=== PATIENT | female | born 1970 | race Caucasian/White ===

== ENCOUNTER 2016-05-17 11:00 | Day surgery (SDC) | payer OTHER ==
--- NOTE | 2016-04-19 06:54 | PCM.HPANE ---
Patient Data Surgeon Admitting Provider: Attending Provider:José Rendon MD Primary Care Physician:Concepción Love MD Other Provider:Bria Enriquezingham Anesthesia Reason for Visit Abnormal Uterine Bleeding, Dysmenorrhea Ht/WT & BMI Height (Feet): 5 Height (Inches): 1 Weight (Kilograms): 97.4 Body Mass Index 40.00 Allergies Coded Allergies: No Known Allergies (Unverified , 04/18/16) Past Anesthesia History Anesthesia History: Positive for:: Abnormal Airway (misalignment jaw- bad bite , surgery scheduled in future), Denies:: Anesthesia Reactions (post c section- nausea and vomiting), Difficult Intubation, Fam Anesthesia Reaction Diabetes History Hx Diabetes?: No (gestational x2) MRSA MRSA: No Medications Hypertension Medication: No Home Meds Incl Beta Ade: No No Active Prescriptions or Reported Meds History HEENT History: Positive for:: Abnormal Airway (misalignment jaw- bad bite , surgery scheduled in future) Denies:: Cataracts Difficult Intubation Dysphagia Glaucoma Hearing Problem Sinus Problem TMJ Cardiovascular History: Denies:: AICD Abdominal Aortic Aneurism Cardiac Surgery Chest Pain Congestive Heart Failure Coronary Artery Disease Edema Heart Murmur Hypertension Irregular Heartbeat Pacemaker Peripheral Vascular Hx of Respiratory Problem?: Yes Respiratory History: Positive for:: Use of C-PAP Machine Denies:: Asthma COPD Emphysema Oxygen Administration Pneumonia Pulmonary Embolism Tuberculosis Use of Inhalers / NEBS Hx Neurologic Problems?: Yes Neurological History: Positive for:: Headaches (related to jaw alignment) Denies:: Alzheimer's Disease Dementia Dizziness Multiple Sclerosis Parkinson's Disease Seizures TIA Hx of GI Problems?: No Gastrointestinal History: Denies:: Cirrhosis Gall Bladder Disease Gastroesphageal Reflux Gastrointestinal Bleeding Heartburn Hepatitis Hiatal Hernia Liver Disease Rectal Bleeding Hx of Problems?: No Genitourinary History: Denies:: Kidney Stones Urinary Tract Infection Female Hx: Denies:: Currently Problems with Breasts? Skin History: Denies:: History Skin Disorders? Pressure Ulcers Hx Musculoskeletal Problems?: Yes Musculoskeletal History: Positive for:: Back Injury (chiropractor as needed for occ ) Denies:: Fibromyalgia Joint Replacement Musculoskeletal Trauma Myasthenia Gravis Osteoarthritis Rheumatoid Arthritis Systemic Lupus Hx of Psycho/Social Problems?: No Psycho Social History: Denies:: Anxiety Hx Depression Hx Surgeries?: Yes (c sections x 2, pericaritis at child, eye surgery) Hx Any Other Health Problems?: Yes Other History: Denies:: Cancer Thyroid Disease History Blood Transfusions: Positive for:: Accept Blood Products? Denies:: Blood Transfusions Hx Diabetes: No (gestational x2) Hx Alcohol Use: YesAlcoholic Drinks Per Day: four drinks weeklyHx Substance Use: NoHave You Smoked inLast 12 mo: No Stop/Bang S-Snoring: Do You Snore Loudly: Yes T-Tired: feel tired, fatigued: Yes O-Obsered: Observed not breath: Yes P-Blood Pressure: treated: No B- Body Mass Index > 35 kg/m2: No A- Age over 50: No N- Neck Large Circumference: No G- Gender Male: No ANALIA Total Score: 3 Risk Assessment Category Category 1A: Patient has history of documented sleep apnea, and HAS NOT received any narcotic, sedative or anesthesia administration during this stay. Category 1B: Patient has history of documented sleep apnea, and HAS received any narcotic , sedative or anesthesia administration during this stay Category 2: Patient has SUSPECTED Obstructive Sleep Apnea, and HAS received any narcotic , sedative or anesthesia administration during this stay. Category 3: Patient has SUSPECTED Obstructive Sleep Apnea and HAS NOT received narcotic, sedative or anesthesia administration during this stay. Category 4: Outpatient in Procedural Areas with known sleep apnea or who screen positive for High Risk via the STOP/BANG questionnaire. Plan Impression Case cancelled for unknown reasons. Leif Mchugh MD Apr 19, 2016 06:54 Leif Mchugh MD Apr 19, 2016 06:54
[~2016-05-17] VITALS: Ht 154.9 cm; Wt 96.4 kg
[2016-05-17] VITALS (12 sets, daily range): BP systolic 111–140; BP diastolic 59–81; PULSE 71–83; RESP 14–23; O2SAT 94–98
[2016-05-17] MEDS: Lactated Ringer's 1,000 ML IV SCH ×4 (05:00→19:55)
[~2016-05-17 11:00] MED LIST: Acetaminophen IV 1,000 MG in IV Premix 1 EACH IV ONE; CeFAZolin Inj 2 GM in IV Premix 1 EACH IV ONE; LORazepam 1 mg Tablet PO PRN; Lactated Ringer's 1,000 ML IV SCH; fentaNYL-PF 50 mCg/mL 2 mL Inj IVPUSH PRN
[2016-05-17] MEDS ORDERED: Ketamine 10 mg/mL 20 mL Inj ONE (11:01)
[2016-05-17] MEDS ORDERED: Labetalol 5 mg/mL 20 mL Inj ONE (11:01)
[2016-05-17] MEDS ORDERED: fentaNYL-PF 50 mCg/mL 2 mL Inj ONE (11:01)
[2016-05-17] MEDS ORDERED: Ondansetron 2 mg/mL 2 mL Inj ONE (11:01)
[2016-05-17] MEDS ORDERED: Dexamethasone 4 mg/mL Inj ONE (11:01)
[2016-05-17] MEDS ORDERED: CeFAZolin 2 Gm/50 mL D5W Duplex Bag IV ONE (11:14)
[2016-05-17] MEDS ORDERED: [UNRECOGNIZED DRUG - REMARK] PO (11:23)
[2016-05-17] MEDS ORDERED: FLUT9.9S NS (11:23)
--- NOTE | 2016-05-17 14:53 | PCM.HPANE ---
Patient Data Surgeon Admitting Provider: Attending Provider:José Rendon MD Primary Care Physician:Herlinda Escobar ARNP Other Provider:Brea Enriquez Anesthesia Reason for Visit Abnormal Uterine Bleeding, Dysmenorrhea Ht/WT & BMI Height (Feet): 5 Height (Inches): 1.00 Weight (Kilograms): 95.8 Body Mass Index 39.00 Allergies Coded Allergies: No Known Allergies (Unverified , 04/18/16) Past Anesthesia History Anesthesia History: Positive for:: Abnormal Airway (misalignment jaw- bad bite , surgery scheduled in future), Denies:: Anesthesia Reactions (post c section- nausea and vomiting), Difficult Intubation, Fam Anesthesia Reaction Diabetes History Hx Diabetes?: No MRSA MRSA: No Medications Hypertension Medication: No Home Meds Incl Beta Ade: No Reported Medications Fluticasone Propionate (Flonase Allergy Relief)50 Mcg/Actuation [place].susp9.9 Ml NS DAILY 05/17/16 [allery rx] No Conflict Check Po Daily 05/17/16 History HEENT History: Positive for:: Abnormal Airway (misalignment jaw- bad bite , surgery scheduled in future) Denies:: Cataracts Difficult Intubation Dysphagia Glaucoma Hearing Problem Sinus Problem TMJ Cardiovascular History: Denies:: AICD Abdominal Aortic Aneurism Cardiac Surgery Chest Pain Congestive Heart Failure Coronary Artery Disease Edema Heart Murmur Hypertension Irregular Heartbeat Pacemaker Peripheral Vascular Hx of Respiratory Problem?: Yes Respiratory History: Positive for:: Use of C-PAP Machine Denies:: Asthma COPD Emphysema Oxygen Administration Pneumonia Pulmonary Embolism Tuberculosis Use of Inhalers / NEBS Hx Neurologic Problems?: Yes Neurological History: Positive for:: Headaches (related to jaw alignment) Denies:: Alzheimer's Disease Dementia Dizziness Multiple Sclerosis Parkinson's Disease Seizures TIA Hx of GI Problems?: No Gastrointestinal History: Denies:: Cirrhosis Gall Bladder Disease Gastroesphageal Reflux Gastrointestinal Bleeding Heartburn Hepatitis Hiatal Hernia Liver Disease Rectal Bleeding Hx of Problems?: No Genitourinary History: Denies:: Kidney Stones Urinary Tract Infection Female Hx: Denies:: Currently Problems with Breasts? Skin History: Denies:: History Skin Disorders? Pressure Ulcers Hx Musculoskeletal Problems?: Yes Musculoskeletal History: Positive for:: Back Injury (chiropractor as needed for occ ) Denies:: Fibromyalgia Joint Replacement Musculoskeletal Trauma Myasthenia Gravis Osteoarthritis Rheumatoid Arthritis Systemic Lupus Hx of Psycho/Social Problems?: No Psycho Social History: Denies:: Anxiety Hx Depression Hx Surgeries?: Yes (c sections x 2, pericaritis at child, eye surgery) Hx Any Other Health Problems?: Yes Other History: Denies:: Cancer Thyroid Disease History Blood Transfusions: Positive for:: Accept Blood Products? Denies:: Blood Transfusions Hx Diabetes: No Hx Alcohol Use: YesAlcoholic Drinks Per Day: four drinks weeklyHx Substance Use: No Smoking Status: Former Smoker Have You Smoked inLast 12 mo: No Stop/Bang Treated for Sleep Apnea?: No Do You Have a CPAP Machine?: No S-Snoring: Do You Snore Loudly: Yes T-Tired: feel tired, fatigued: Yes O-Obsered: Observed not breath: Yes P-Blood Pressure: treated: No B- Body Mass Index > 35 kg/m2: No A- Age over 50: No N- Neck Large Circumference: No G- Gender Male: No ANALIA Total Score: 3 ANALIA Risk Assessment: High Risk, =/>3 Yes ANALIA Category 2: Yes Risk Assessment Category Category 1A: Patient has history of documented sleep apnea, and HAS NOT received any narcotic, sedative or anesthesia administration during this stay. Category 1B: Patient has history of documented sleep apnea, and HAS received any narcotic , sedative or anesthesia administration during this stay Category 2: Patient has SUSPECTED Obstructive Sleep Apnea, and HAS received any narcotic , sedative or anesthesia administration during this stay. Category 3: Patient has SUSPECTED Obstructive Sleep Apnea and HAS NOT received narcotic, sedative or anesthesia administration during this stay. Category 4: Outpatient in Procedural Areas with known sleep apnea or who screen positive for High Risk via the STOP/BANG questionnaire. Exam Exam Vital Signs Vital Signs Date Time Temp Pulse Resp B/P Pulse Ox O2 Delivery O2 Flow Rate FiO2 05/17/16 11:44 CPAP/BIPAP 05/17/16 11:44 36.9 83 18 140/78 97 Room Air General Appearance: Alert, Oriented X3, Cooperative, No Acute Distress HEENT/AIRWAY: MP 2 Lungs: Clear to Auscultation, Normal Air Movement Heart: Exam Unremarkable, Regular Rate/Rhythm, No Murmurs/Rubs/Gallops Meds/Labs/Diagnostics Admission Meds Current Medications Lactated Ringer's (Lr) 1,000 ml @ 120 mls/hr Q8H20M IV Last administered on t 11:04; Start 05/17/16 at 05:00; Stop 05/17/16 at 13:26; Status DC Plan Impression Patient chart reviewed, patient interviewed and anesthestic plan with risks, benefits, and alternatives discussed, and informed consent obtained. ASA Physical Status: ASA3 Severe Disease (BMI 40) Anesthetic Plan: GA Bene/Risks/Altern/Consents: Yes HP Complete Prior to Induction: Yes Morris Daniel MD May 17, 2016 14:53
[2016-05-17] MEDS ORDERED: Bupivacaine-MPF 0.5% W/EPI 30 mL Inj INFILTRATE ONE (15:00)
[2016-05-17] MEDS ORDERED: Lactated Ringer's 500 ML IV PRN (15:13)
[2016-05-17] MEDS ORDERED: Lactated Ringer's 1,000 ML IV SCH (15:13)
[2016-05-17] MEDS ORDERED: Ondansetron 2 mg/mL 2 mL Inj IVPUSH PRN ×2 (15:15→19:00)
[2016-05-17] MEDS ORDERED: fentaNYL-PF 50 mCg/mL 2 mL Inj IVPUSH PRN (15:15)
[2016-05-17] MEDS ORDERED: MetoCLOpramide 5 mg/mL 2 mL Inj IVPUSH PRN ×2 (15:15→19:00)
[2016-05-17] MEDS ORDERED: EPHEDrine Sulfate 50 mg/mL Inj IVPUSH PRN (15:15)
[2016-05-17] MEDS ORDERED: Dexamethasone 4 mg/mL Inj IVPUSH PRN (15:15)
[2016-05-17] MEDS ORDERED: HYDROmorphone 1 mg/mL Inj IVPUSH PRN (15:15)
[2016-05-17] MEDS ORDERED: Phenylephrine 10,000 mCg/mL Inj IVPUSH PRN (15:15)
[2016-05-17] MEDS ORDERED: Lactated Ringer's 1,000 ML IV ONE (16:50)
[2016-05-17] MEDS ORDERED: oxyCODONE-Acetamin 5-325 mg Tablet PO PRN (19:00)
[2016-05-17] MEDS ORDERED: Senna-Docusate 8.6-50 mg Tablet PO PRN (19:00)
[2016-05-17] MEDS ORDERED: Alum-Mag Hydrox-Simeth 30 mL Suspension PO PRN (19:00)
[2016-05-17] MEDS: Senna-Docusate 8.6-50 mg Tablet PO SCH (23:44)
[2016-05-18 01:59] VITALS: BP 117/73; PULSE 109; RESP 18; O2SAT 96
--- NOTE | 2016-05-18 02:53 | NUR ---
post op pt arrived to [facility] room 1030 at 1945 via [facility] from PACU. she was drowsy but oriented. on 2L of via NC. diego patent and draining to gravity. pt complained of feeling like she needed to void and lots of pressure. she was bladder scanned and the scan was 0. diego repositioned to try and provide comfort. the sensation to need to urinate has persisted but pt has been asked to inform nursing staff if it becomes more severe or painful. she had no pain upon returning to pacu. she denied nausea and was given water. bowel tones are absent and pt is not passing gas.minimal amount of bleeding seen on alina pad. care continues.
[2016-05-18] MEDS: Lactated Ringer's 1,000 ML IV SCH ×2 (02:58→10:58)
--- NOTE | 2016-05-18 05:51 | OP ---
[address] [address] OPERATIVE REPORT PATIENT: SELENA RUSHING : 1970 MR#: [id number] ADMIT: 05/17/2016 JOB ID: [id number] DATE OF SURGERY: 05/17/2016 PROCEDURE: 1. Total laparoscopic hysterectomy. 2. Bilateral salpingectomy. 3. Cystoscopy. PREOPERATIVE DIAGNOSIS(ES): 1. Abnormal uterine bleeding. 2. Dysmenorrhea. POSTOPERATIVE DIAGNOSIS(ES): 1. Abnormal uterine bleeding. 2. Dysmenorrhea. SURGEON: José Rendon MD. DRAFTER CHIEF DESIGN: Alyce Erwin MD. ANESTHESIA: General. ANESTHESIOLOGIST: Morris Daniel MD. ESTIMATED BLOOD LOSS: 300 mL. ESTIMATED URINE OUTPUT: 800 mL. FLUIDS: 1800 mL of lactated Ringer. COMPLICATIONS: None. FINDINGS: Adhesions between the omentum and the midportion of the abdomen next to the umbilicus. Small cervix, nonstenotic. Uterus about 10 weeks in size. Transected fallopian tubes as the result of prior tubal ligation. Normal ovaries. This surgery was complicated by the patient's BMI of 40 and presence of MD assistant professor in family studies was necessary for retraction and visualization, and in assistance with manipulation of the specimen and tissue. DESCRIPTION OF PROCEDURE: The patient was brought to the operating room, where she underwent general anesthesia without difficulty. The patient was prepped and draped in usual surgical fashion. She was placed in the dorsal lithotomy position using Justin stirrups. She received preoperative antibiotics. Time-out was performed verifying correct patient, correct procedure. Pelvic exam was performed. The uterus was found to be about 10 weeks in size, mobile, mid position. The Lackey catheter was placed prior to the procedure. The cervix was identified, grasped with a tenaculum and VCare uterine manipulator was placed with a small cup. Attention was then directed to the patient's abdomen, where a Veress needle was introduced and CO2 gas was insufflated with appropriate pneumoperitoneum achieved. A 5 mm subumbilical incision was made with a scalpel and a 5 mm trocar was placed through the incision. A 30-degree scope was used for laparoscopy and cystoscopy. The patient's abdomen was reviewed with the findings mentioned above. Initially, lysis of some adhesions at the paraumbilical area was performed using Thunderbeat instrument. When the adhesions were released, omentum was dissected down and good visualization was achieved. We proceeded with total laparoscopic hysterectomy with bilateral salpingectomy. Two additional trocars were placed in the right and left lower quadrants 5 cm medially and 10 cm above the anterior superior iliac spine. The patient was placed in Trendelenburg position and the uterus was elevated up. Because bowel was obscuring the view despite Trendelenburg position and the patient was desaturating, an additional 5 mm skin incision was made on the patient's left side 5 cm above the initial left lower quadrant incision and a 5 mm trocar was placed through that incision. The 5 mm fan bowel retractor was placed through the trocar in order to move the bowels away from the operative field. Using Thunderbeat instrument, the patient's left fallopian tube was dissected from the mesosalpinx, followed by transection of the tubo-ovarian ligament, round ligament and part of the broad ligament. Further dissection was made through the anterior and posterior leaves of the broad ligament until lower uterine segment was reached on the left side. With LigaSure instrument, left uterine artery was ligated proximally and distally and transected. Attention was directed to the patient's contralateral side. In a similar fashion, the patient's fallopian tube was dissected from the mesosalpinx, followed by transection of round ligament, tubo-ovarian ligament and anterior and posterior leaves of the broad ligament. Further dissection was done toward the lower uterine segment where the patient's right uterine artery was ligated and transected. Using a fan bowel retractor to move the bowel away from the cul-de-sac area and elevating the uterus up allowed visualization of the posterior lower uterine segment and the cervix. With the use of the Thunderbeat instrument incision was made over the posterior cul-de-sac and circumferentially continued from patient's left to the right side. The cervix was from the vagina posteriorly. This was followed by circumferential dissection over the anterior portion of the cervix and right and left sides until the specimen, uterus with the cervix, was from the vagina. Attention was directed to the patient's vaginal side, where the specimen was grasped by the cervix with two tenaculums, removed and sent to Pathology. A surgical inflated glove was placed into the vagina to maintain good pneumoperitoneum. Attention was directed to the abdominal portion of the procedure. The patient was placed in a steep Trendelenburg position. The bowel was moved away from the posterior cul-de-sac area with the bowel retracted. Using 2-0 V-Loc suture, the vaginal cuff was closed in a running, nonlocking fashion from patient's right to left side. Good hemostasis was achieved. The pelvis was irrigated with warm normal saline and the picture was obtained at the end of the closure. The patient was repositioned back into the supine position. Cystoscopy was performed verifying patency of both ureters, a 30-degree scope was used. The bladder was found to be intact. There was some irritation of the urethra. The cystoscope was removed, and Lackey catheter was replaced. Four abdominal trocar skin incisions were closed with 4-0 Monocryl in subcuticular fashion. Dermabond glue and hemostatic dressings were applied. The patient was repositioned back into a supine position. She tolerated the procedure well and was transferred to the recovery room in a stable condition.
[2016-05-18] MEDS ORDERED: CeFAZolin Inj 2 GM in IV Premix 1 EACH IV SCH (06:00)
[2016-05-18 06:24] VITALS: BP 113/73; PULSE 96; RESP 18; O2SAT 97
[2016-05-18 07:03] LABS: BASOPHILS % (AUTO) 0.2 % (0-3); EOSINOPHILS % (AUTO) 0 % (0-5); MONOCYTES % (AUTO) 6.1 % (4-12); Mean Corpuscular Hemoglobin 29.8 pg (27.0-35.0); Mean Corpuscular Volume 92.4 fL (81-100); Platelet Count 239 bil/L (150-400)
[2016-05-18] MEDS: Senna-Docusate 8.6-50 mg Tablet PO SCH (08:40)
[2016-05-18 10:50] VITALS: BP 137/77; PULSE 78; RESP 18; O2SAT 97
--- NOTE | 2016-05-18 11:27 | PCM.DIMED ---
Discharge Instructions Date of Service May 18, 2016 Dates of Hospitalization Diet No restrictions Activity No restrictions Call your provider Fever or Chills, Shortness of breath, Bleeding, Chest pain, Vomitting, Excessive diarrhea, Weakness (unilateral) Patient Instructions Follow-up with PCP in: 2 weeks José Rendon MD May 18, 2016 11:27
--- NOTE | 2016-05-18 11:43 | DIS ---
[address] [address] DISCHARGE SUMMARY PATIENT: SELENA RUSHING : 1970 MR#: [id number] ADMIT: 05/17/2016 JOB ID: [id number] DIS: ADMITTING DIAGNOSES: 1. Abnormal uterine bleeding. 2. Dysmenorrhea. DISCHARGE DIAGNOSES: 1. Abnormal uterine bleeding. 2. Dysmenorrhea. HOSPITAL COURSE: The patient is a 45-year-old, 3, para 2, who was admitted for total laparoscopic hysterectomy with bilateral salpingectomy on May 17, 2016 because of abnormal uterine bleeding and chronic pelvic pain, dysmenorrhea. The surgery went uncomplicated. The estimated blood loss was 300 mL. The surgery was difficult because of the patient's body habitus, BMI of 40, and two prior C-sections. She stayed overnight for pain management and observation. On the morning of May 18, 2016, postoperative day one, she was doing well, eating, not in pain, afebrile. Vital signs were temperature 37.1, respiratory rate 18, pulse 78, blood pressure 137/77, saturation 97% on room air. Lungs were clear bilaterally, with good respiratory effort. Cardiovascular: Regular rate and rhythm. Abdomen was soft, nontender, nondistended. Trocar skin incisions were dry, clean, and intact. Hemostatic dressings were removed. The Lackey catheter was removed. Urine output was adequate and the urine was clear. There was no vaginal bleeding or abnormal vaginal discharge. Postoperative day one the WBC count was 10.7, hemoglobin 11.4, hematocrit 35.3, platelet count was 239. The patient was discharged home on postoperative day one, May 18, 2016, with all discharge criteria met. Discharge instructions provided to the patient. Followup visit is scheduled in the clinic in two weeks. She received discharge prescriptions including Percocet 5/325 mg one tab p.o. q.i.d. p.r.n., Motrin 800 mg one tab p.o. t.i.d. p.r.n., Cipro 500 mg p.o. b.i.d., and Colace 100 mg p.o. b.i.d. p.r.n.
--- NOTE | 2016-05-18 14:47 | NUR ---
D/C'd Pt D/C'd via wheelchair to home with family, IV catheter removed intact, hard copies of prescriptions with pt, all pt belongings with pt, pt signed and stated understanding of discharge information and handouts.
--- NOTE | 2016-05-20 07:30 | PCM.ANEP1 ---
Post Anesthesia Phase 1 PACU Phase 1 Assessment Anesthetic Administered: GA Level of Alertness: Sleepy, easy to arouse MCKEON's with Equal Strength: Yes Pain: Yes (4 (replied NO for meds)) Pain Scale Score: 4 Lungs: Clear to Auscultation, Normal Air Movement Dermatome Level: Full Sensation Morris Daniel MD May 20, 2016 07:29
--- NOTE | 2016-05-20 07:30 | PCM.ANEP2 ---
Post Anesthesia Evaluation ASA/CMS Post Anesthesia VS in Patient's Normal Range?: Yes Resp Stable; Airway Patent?: Yes CV Function & Hydration Stable: Yes Mental Status Recovered?: Yes Pain control Satisfactory?: Yes N/V Control Satisfactory?: Yes Morris Daniel MD May 20, 2016 07:30
--- NOTE | 2016-05-24 10:12 | PATH ---
SURGICAL PATHOLOGY Attending Physician:José Rendon MD CASE STATUS: Signed Out PATIENT NAME: SELENA RUSHING PID: [id number] : 1970 DATE COLLECTED:05/17/2016 00:00 SPECIMEN: Uterus +/- tubes/ovaries, except neoplastic, prolapse CLINICAL HISTORY: A: BILATERAL FALLOPIAN TUBES AND UTERUS AUB, DYSMENORRHEA FINAL DIAGNOSIS: 1.UTERUS AND BILATERAL FALLOPIAN TUBES: BENIGN SECRETORY ENDOMETRIUM, NEGATIVE FOR HYPERPLASIA, ATYPIA AND NEOPLASIA. LEFT FALLOPIAN TUBE WITH CHANGES CONSISTENT WITH PRIOR TUBAL LIGATION. ICD10 CODE N94.6 GROSS DESCRIPTION: The specimen is received in formalin, labeled with the patient's name, sublabeled as uterus & bilateral fallopian tubes, and consists of a uterus (143 g, 5.5 cm AP, 11.7 cm SI, 6.3 cm ML) with an attached fimbriated left fallopian tube (length-5.6 cm, diameter-0.6 cm). The ovaries and right fallopian tube are absent. The cervix (1.8 cm AP, 2.9 cm ML) has a transverse os and patent endocervical canal. The endometrium (average thickness-0.1 cm) is magdaleno-white smooth and flat. The myometrium (thickness-2.2 cm) is magdaleno-white and firm and otherwise unremarkable. The serosa is magdaleno-white smooth and shiny. The fallopian tube has a luciano-magdaleno smooth shiny serosa and a magdaleno unremarkable lumen. Section code: (A) anterior cervix; (B) posterior cervix; (C, D) anterior endomyometrium; (E, F) posterior endomyometrium; (G) left fallopian tube, serially sectioned, admitting representative; (H) left fimbria, bivalved, entirely submitted. 05/21/16 JM Gross examined by ES 05/24/2016, verified absence of right fallopian tube. (EKS) MICRO DESCRIPTION: See diagnosis. ICD-9 CODES: CPT CODES: 1: 44122 Electronically Signed Out Serena Wray MD [facility] Path[facility] [address] [facility] [facility] [place] [address] Technical component performed at [facility], [facility] [address], [address]
== END 2016-05-18 13:24 | disposition home or self-care (01) ==
LOC: SAS 11:00 → OSC 19:52 → SAS 05-18 13:24
PROVIDERS: ATTEND Legal Medicine
DX: N93.9 Abnormal uterine and vaginal bleeding, unspecified (principal); N94.6 Dysmenorrhea, unspecified; G47.30 Sleep apnea, unspecified
CPT/HCPCS: 36415; 58571; 85025; J0131; J0690; J1100; J2250; J2405; J7120

== ENCOUNTER 2016-12-18 14:48 | Emergency (ER) | payer OTHER ==
[~2016-12-18] VITALS: Ht 154.9 cm; Wt 90.0 kg
[~2016-12-18 14:48] MED LIST changes: -Acetaminophen IV 1,000 MG in IV Premix 1 EACH IV ONE; -CeFAZolin Inj 2 GM in IV Premix 1 EACH IV ONE; +FLUT9.9S NS; -LORazepam 1 mg Tablet PO PRN; -Lactated Ringer's 1,000 ML IV SCH; +[UNRECOGNIZED DRUG - REMARK] PO; -fentaNYL-PF 50 mCg/mL 2 mL Inj IVPUSH PRN
[2016-12-18] MEDS ORDERED: HYDR12.55 PO (14:51)
[2016-12-18 14:52] VITALS: BP 169/107; PULSE 104; RESP 15; O2SAT 100
[2016-12-18 15:42] LABS: BASOPHILS % (AUTO) 0.4 % (0-3); EOSINOPHILS % (AUTO) 1.3 % (0-5); MONOCYTES % (AUTO) 6.5 % (4-12); Mean Corpuscular Hemoglobin 30.3 pg (27.0-35.0); Mean Corpuscular Volume 88.8 fL (81-100); NEUTROPHILS % (AUTO) 70.1 % (40-74); Platelet Count 230 bil/L (150-400)
--- NOTE | 2016-12-18 15:43 | ED.REPORT ---
HPI-General Illness Date of Service Dec 18, 2016 ED Provider: Edwin Hines MD The patient is a 46 year old female with previous remote pericarditis who presents to the ED following an episode of hypertension that began just prior to arrival. First BP was recorded at 144/99 and the patient began to express concern and states that she felt panicked. Patient recently began HCTZ 5 days ago. Associated symptoms include heart palpations, chest pressure which has subsequently resolved, nonvertiginous dizziness, anxiety, mild tingling in the fingertips. She denies headache, chest pain, or abdominal pain. Nursing Notes Stated Complaint: HIGH BLOOD PRESSURE Chief Complaint: General Complaint Nursing Notes Reviewed: Yes Allergies: Coded Allergies: No Known Allergies (Unverified , 12/18/16) Scheduled Hydrochlorothiazide (Hydrochlorothiazide) 12.5 Mg Tablet 12.5 MG PO DAILY General Time Seen by MD: 15:40 Chief Complaint Other (Hypertensive episode) Hx Obtained From: Patient Arrived By: Walk-in Sudden in Onset?: No Onset Occurred: 1 - 4 hours ago Symptom Duration: Since onset Location: : Chest Quality: Pressure Radiation: : Does not radiate Severity: Current: Mild Severity: Maximum: Moderate Associated with: Reports: Chest pain, Dizziness, Shortness of breath, Denies: Abdominal pain, Headache Pertinent Negative: Pt denies other symptoms Recent Healthcare: No recent doctor visit, No recent hospitalization Past Medical History Past Medical History Migraines C-PAP [place] hypertension Past Surgical History None reported. Smoking History Former Smoker Social History Other Social History: Good social support, Local resident Ambulatory Status Independent Review of Systems Full Review of Systems Eyes: Reports: Blurred bilateral Respiratory: Reports: Shortness of breath Cardiovascular: Reports: Chest pain (Chest presure), Palpitations Neurologic: Reports: Dizziness, Denies: Headache Psychiatric: Reports: Anxiety Complete sys rev & neg: except as marked. Physical Exam Vital Signs Vital Signs Date Time Temp Pulse Resp B/P Pulse Ox O2 Delivery O2 Flow Rate FiO2 12/18/16 16:28 88 17 170/98 99 Room Air 12/18/16 14:52 37 104 15 169/107 100 Room Air Initial VS: Unavailable Neck: Supple, Non-tender, Full range of motion Skin: Warm, Dry, No cyanosis Neurologic: Alert, Oriented, Nonfocal Psychiatric: Mood/affect normal, Behavior normal, Normal thought content General/Constitutional: Awake, Alert, No acute distress, Well appearing, Well developed Behavior: Positive: Anxious Head / Eyes: Atraumatic, Normocephalic, PERRL Respiratory / Chest: Atraumatic, Breath sounds NL, Breath sounds = bilat, No respiratory distress Cardiovascular: Heart rate NL, Regular rhythm, Heart sounds NL, No gallop, No murmurs, No rubs Abdomen: Atraumatic, Soft, Non-tender, No distention Upper Extremities Upper Extremity / MS: Atraumatic, Neurologic intact, Vascular intact Lower Extremity / Pelvis / MS: Atraumatic, No swelling, Non-tender, Neurologic intact, Vascular intact Interpretation & Diagnostics Lab Results Interpretation Result Diagram: 12/18/16 1535 12/18/16 1535 Test 12/18/16 15:35 White Blood Count 7.0th/mm3 (3.8-10.1) Red Blood Count 4.75mil/mm3 (3.90-5.20) Hemoglobin 14.4g/dL (12.0-15.6) Hematocrit 42.2% (35.0-46.0) Mean Corpuscular Volume 88.8fL (81-100) Mean Corpuscular Hemoglobin 30.3pg (27.0-35.0) Mean Corpuscular Hemoglobin Concent 34.1% (32.0-37.0) Red Cell Distribution Width 12.6% (12.3-15.4) Platelet Count 230bil/L (150-400) Neutrophils (%) (Auto) 70.1% (40-74) Lymphocytes (%) (Auto) 21.6% (14-46) Monocytes (%) (Auto) 6.5% (4-12) Eosinophils (%) (Auto) 1.3% (0-5) Basophils (%) (Auto) 0.4% (0-3) Sodium Level 137mEq/L (134-144) Potassium Level 3.3mEq/L (3.5-5.2) Chloride Level 95mEq/L (97-108) Carbon Dioxide Level 23mmol/L (18-29) Blood Urea Nitrogen 10mg/dL (6-24) Creatinine 0.64mg/dL (0.57-1.00) Estimat Glomerular Filtration Rate 144mL/min (>59) Glucose Level 148mg/dL (60-99) Calcium Level 9.9mg/dL (8.5-10.1) Total Bilirubin 0.8mg/dL (0.0-1.2) Aspartate Amino Transf (AST/SGOT) 40U/L (0-50) Alanine Aminotransferase (ALT/SGPT) 36U/L (0-32) Alkaline Phosphatase 84U/L (25-150) Total Protein 8.0g/dL (6.4-8.4) Albumin 4.6g/dL (3.4-5.0) Hold Idop Top Tube Received (Received) ECG Interpretation ECG Interpretation: Sinus rhythm Rate 93 bpm Left axis deviation [place] QT interval No ST elevation No prior for comparison. Time: 15:57 Interpreted by: ED physician Re-Eval/Medical Decision Med Decision/Clinical Course Patient is a generally healthy 46-year-old female recently started on hydrochlorothiazide for hypertension who presents to the emergency department after checking her blood pressure at home and determining that it was elevated. She reports feeling very panicked and anxious about her elevated blood pressure and has been serially checking it throughout the day before coming in to be seen. Here in the emergency department the patient's blood pressures in the 160s to 170s systolic and she is asymptomatic though quite anxious. Her vital signs are otherwise stable. EKG Sinus rhythm Rate 93 bpm Left axis deviation [place] QT interval No ST elevation No prior for comparison. Labs CBC unremarkable CMP unremarkable except for K 3.3 At this time patient's blood pressure is not markedly elevated. I see no findings to strongly suggest hypertensive urgency or emergency. Her blood pressure somewhat elevated it is not in the range where one would expect to see and organ damage. Her studies are reassuring except for mildly low potassium. Her EKG demonstrated no acute ischemic changes and she was without headache or blurry vision. I do not feel that CT scan of her head is indicated. Patient was discussed with her primary care provider and she will follow up later this week to recheck her blood pressure and further titrate her antihypertensives. Patient reports feeling very reassured and would like to be discharged home. I feel that this is appropriate. She will continue to keep a log of her blood pressures and was provided with strict follow-up and return precautions and symptoms of hypertensive urgency/emergency discussed in detail. Prior to discharge follow-up and return precautions were reviewed in detail with the patient who verbalized understanding and agreement with the plan. The patient was discharged in stable condition. Time of Eval: 16:09 Patient Status: Condition improved Re-Evaluation/Progress Note: The patient's symptoms have improved upon recheck. All questions are addressed. She is informed of her results and diagnosis. The patient understands and agrees with the intended treatment plan. Consultation : Referral / Consult Name: Herlinda Escobar ARNP Consulted With: Primary care physician Call Returned at: 16:32 Brand Marketing Coordinator: Will see patient, Will see in office, Agrees with eval, Agrees with plan Counseled Regarding: Diagnosis, Lab results, Need for follow-up, When/why to return to ED Discharge & Departure Primary Impression: Hypertension Hypertension type: unspecified secondary hypertension Qualified Code: I15.9 - Secondary hypertension, unspecified Additional Impressions: Panic attack Hypokalemia Disposition: Home Discharge Condition All VS Reviewed: Yes Condition: Improved Patient Instructions: Anxiety (ED), Chronic Hypertension (ED) Additional Instructions: Thank you for seeking care at emergency room. It is difficult for us to make definitive diagnoses in the ED but we believe that your symptoms are due to a hypertension and a panic attack. Our primary goal today in the ED was to evaluate you for any life-threatening conditions. Your evaluation was reassuring. Continue to take home medication as directed. You should follow-up with your primary nurse practitioner in the next 2 days to discuss blood pressure medication. You should return to the ED immediately if you develop a blood pressure over 200/100, fevers, vomiting, cough, shortness of breath, blurry vision, chest pain , lightheadedness, weakness or any other concerning signs or symptoms. Thank you for letting us partake in your care today. Referrals: Herlinda Escobar ARNP (PCP) Scribe Attestation Portions of this note were transcribed by Connor De La Vega. I, Dr. Hines personally performed the history, physical exam and medical decision-making; I reviewed and confirmed the accuracy of the information in the transcribed note. copies to: Herlinda Escobar ARNP [place], Beck O MD Dec 18, 2016 15:43 CONNOR DE LA VEGA Dec 18, 2016 16:09
[2016-12-18 16:28] VITALS: BP 170/98; PULSE 88; RESP 17; O2SAT 99
== END 2016-12-18 16:29 | disposition home or self-care (01) ==
LOC: SED 14:48
DX: I15.9 Secondary hypertension, unspecified (principal); F41.0 Panic disorder [episodic paroxysmal anxiety]; E87.6 Hypokalemia; Z87.891 Personal history of nicotine dependence; Z86.79 Personal history of other diseases of the circulatory system